=== PATIENT | male | born 1940 | race Caucasian/White ===

== ENCOUNTER 2019-07-25 05:53 | Emergency (ER) | payer OTHER, MEDICARE ==
[~2019-07-25] VITALS: Ht 188 cm; Wt 97.5 kg
[~2019-07-25 05:53] MED LIST: ASPI325 PO; ASPI81CH PO; ATEN50 PO; DESO.05TCA TOP; DIAZ5 PO; FISH1000 PO; FLUO25TC TOP; MULVITMINF PO; NAPR500 PO; Norco 5-325 Ta1 EACH PO; OMEP20ER PO; OXYACE5T PO; Robaxin500 MG PO; SIMV10 PO; TAMS.4ER PO
[2019-07-25] MEDS ORDERED: ELIQUIS2.5 MG PO (06:15)
[2019-07-25] MEDS ORDERED: FISH OIL 500 M1 EACH PO (06:16)
[2019-07-25] MEDS ORDERED: NITR.4SL SL (06:17)
[2019-07-25 06:18] LABS: BASOPHILS ABSOLUTE AUTO 0.06 K/mm3 (0.00-0.23); BASOPHILS PERCENT AUTO 1 % (0-2); EOSINOPHILS ABSOLUTE AUTO 0.32 K/mm3 (0.00-0.68); EOSINOPHILS PERCENT AUTO 5 % (0-6); Hematocrit 46.8 % (37.0-53.0); Hemoglobin 15.8 g/dL (13.5-17.5); IMMATURE GRAN ABSOLUTE AUTO 0.01 K/mm3 (0.00-0.10); IMMATURE GRAN PERCENT AUTO 0 % (0-1); LYMPHOCYTES ABSOLUTE AUTO 2.54 K/mm3 (0.84-5.20); LYMPHOCYTES PERCENT AUTO 40 % (21-46); MONOCYTES ABSOLUTE AUTO 0.81 K/mm3 (0.16-1.47); MONOCYTES PERCENT AUTO 13 % (4-13); Mean Corpuscular HGB 33.1 pg (26.0-34.0); Mean Corpuscular HGB Conc 33.8 g/dL (31.5-36.5); Mean Corpuscular Volume 98 fL (80-100); Mean Platelet Volume 9.7 fL (9.1-12.4); NEUTROPHILS ABSOLUTE AUTO 2.65 K/mm3 (1.96-9.15); NEUTROPHILS PERCENT AUTO 42 % (41-73); Platelet Count 190 K/mm3 (150-400); RDW Coefficient Variation 13.8 % (11.7-14.2); RDW Standard Deviation 50.5 fL (35.1-46.3); Red Blood Cell Count 4.78 M/mm3 (4.30-5.90); White Blood Cell Count 6.39 K/mm3 (4.00-11.30)
[2019-07-25 06:33] LABS: Alanine Aminotransfer (ALT/SGP 41 U/L (12-78); Albumin, Blood 3.1 g/dL (3.4-5.0); Anion Gap 7 mmol/L (6-16); Aspartate Aminotrans (AST/SGOT 39 U/L (12-37); Bilirubin, Total 0.7 mg/dL (0.1-1.0); Blood Urea Nitrogen 20 mg/dL (8-24); Bun/Creatinine Ratio 19.4 (12.0-20.0); CO2, Blood 24 mmol/L (21-32); Calcium, Blood 8.2 mg/dL (8.5-10.1); Chloride, Blood 111 mmol/L (98-108); Creatinine, Blood 1.03 mg/dL (0.60-1.20); Globulin, Blood 3.2 g/dL (2.2-4.0); Glomerular Filtration Rate >60 (60-); Glucose, Blood 143 mg/dL (70-99); Potassium, Blood 4.2 mmol/L (3.5-5.5); Sodium, Blood 142 mmol/L (136-145); Total Protein, Blood 6.3 g/dL (6.4-8.2)
[2019-07-25 06:36] LABS: Alk Phos 102 U/L (50-136); Troponin I <0.015 ng/mL (0.000-0.040)
== END 2019-07-25 08:00 | disposition home or self-care (01) ==
LOC: ER 05:53
PROVIDERS: Emergency Medicine
DX: R55 Syncope and collapse (principal); I48.91 Unspecified atrial fibrillation; I25.10 Atherosclerotic heart disease of native coronary artery without angina pectoris; I25.2 Old myocardial infarction; I10 Essential (primary) hypertension
CPT/HCPCS: 36415; 71046; 80053; 84484; 85025; 93005; 93010; 96360; 99284-25; J7030

== ENCOUNTER 2021-06-28 08:31 | Day surgery (SDC) | payer MEDICARE, OTHER ==
[~2021-06-28] VITALS: Ht 188 cm; Wt 109.0 kg
[~2021-06-28 08:31] MED LIST changes: +ATOR20 PO; +CENTRUM SILVER1 EAC2 PO; +ELIQUIS2.5 MG PO; -MULVITMINF PO; +NITR.4SL SL; +OMEGA-3 FISH O1 EA13 PO
[2021-06-28] MEDS ORDERED: ELIQUIS5 M2 (08:55)
== END 2021-06-28 10:59 | disposition home or self-care (01) ==
LOC: ORSCSDS 08:31
PROVIDERS: Internal Medicine Gastroenterology
PROC: 0DBK8ZX Excision of Ascending Colon, Via Natural or Artificial Opening Endoscopic, Diagnostic (ICD-10-PCS; principal; 2021-06-28 10:00)
PROC: 0DBH8ZX Excision of Cecum, Via Natural or Artificial Opening Endoscopic, Diagnostic (ICD-10-PCS; principal; 2021-06-28 10:00)
DX: Z12.11 Encounter for screening for malignant neoplasm of colon (principal); Z86.010 Personal history of colon polyps; Z80.0 Family history of malignant neoplasm of digestive organs; D12.2 Benign neoplasm of ascending colon; D12.0 Benign neoplasm of cecum; K57.30 Diverticulosis of large intestine without perforation or abscess without bleeding; I10 Essential (primary) hypertension; Z79.01 Long term (current) use of anticoagulants; Z79.899 Other long term (current) drug therapy
CPT/HCPCS: 88305; J2704; J7120

== ENCOUNTER → 2021-08-11 | Outpatient (CLI) | payer MEDICARE, OTHER ==
[~2021-08-11] MED LIST changes: +ELIQUIS5 M2
== END | disposition home or self-care (01) ==
LOC: LAB SHORT 12:00
DX: T81.89XA Other complications of procedures, not elsewhere classified, initial encounter (principal); A49.9 Bacterial infection, unspecified; L81.4 Other melanin hyperpigmentation; L82.1 Other seborrheic keratosis; D22.61 Melanocytic nevi of right upper limb, including shoulder; D22.5 Melanocytic nevi of trunk; D22.62 Melanocytic nevi of left upper limb, including shoulder; D22.39 Melanocytic nevi of other parts of face; L57.0 Actinic keratosis
CPT/HCPCS: 87070; 87077; 87186

== ENCOUNTER → 2021-12-20 | Outpatient (CLI) | payer MEDICARE, OTHER | END | disposition home or self-care (01) | LOC: LAB SHORT 14:30 | DX: S80.921A Unspecified superficial injury of right lower leg, initial encounter (principal); L08.9 Local infection of the skin and subcutaneous tissue, unspecified | CPT/HCPCS: 87070; 87205 ==

== ENCOUNTER 2023-08-02 11:40 | Inpatient (IN) | payer OTHER, MEDICARE ==
[2023-08-02] VITALS (11 sets, daily range): BP systolic 107–136; BP diastolic 75–94
[~2023-08-02] VITALS: Ht 188 cm; Wt 115.2 kg
[2023-08-02 12:39] LABS: BASOPHILS ABSOLUTE AUTO 0.04 K/mm3 (0.00-0.23); BASOPHILS PERCENT AUTO 1 % (0-2); EOSINOPHILS ABSOLUTE AUTO 0.23 K/mm3 (0.00-0.68); EOSINOPHILS PERCENT AUTO 4 % (0-6); Hemoglobin 16.5 g/dL (13.5-17.5); IMMATURE GRAN ABSOLUTE AUTO 0.01 K/mm3 (0.00-0.10); IMMATURE GRAN PERCENT AUTO 0 % (0-1); LYMPHOCYTES ABSOLUTE AUTO 1.31 K/mm3 (0.84-5.20); LYMPHOCYTES PERCENT AUTO 20 % (21-46); MONOCYTES ABSOLUTE AUTO 0.62 K/mm3 (0.16-1.47); MONOCYTES PERCENT AUTO 10 % (4-13); Mean Corpuscular HGB 33.3 pg (26.0-34.0); Mean Corpuscular HGB Conc 34.4 g/dL (31.5-36.5); Mean Corpuscular Volume 97 fL (80-100); Mean Platelet Volume 9.8 fL (9.1-12.4); NEUTROPHILS ABSOLUTE AUTO 4.27 K/mm3 (1.96-9.15); NEUTROPHILS PERCENT AUTO 66 % (41-73); Platelet Count 206 K/mm3 (150-400); RDW Coefficient Variation 13.8 % (11.7-14.2); RDW Standard Deviation 49.4 fL (35.1-46.3); Red Blood Cell Count 4.95 M/mm3 (4.30-5.90); White Blood Cell Count 6.48 K/mm3 (4.00-11.30)
[2023-08-02 13:11] LABS: Albumin, Blood 3.2 g/dL (3.4-5.0); Albumin/Globulin Ratio 0.9 (0.8-1.8); Bilirubin, Total 0.7 mg/dL (0.1-1.0); Bun/Creatinine Ratio 19.6 (12.0-20.0); Calcium, Blood 8.7 mg/dL (8.5-10.1); Creatinine, Blood 1.07 mg/dL (0.60-1.20); Globulin, Blood 3.4 g/dL (2.2-4.0); Potassium, Blood 4.6 mmol/L (3.5-5.5); Total Protein, Blood 6.6 g/dL (6.4-8.2)
[2023-08-02 15:22] LABS: Cholesterol 109 mg/dL (50-200); HDL Cholesterol 55 mg/dL (>39); LDL/HDL RATIO 0.6; Low Density Lipoprotein Chol 34 mg/dL (0-110); Triglycerides 101 mg/dL (30-160); Very Low Density Lipoprot Chol 20 mg/dL (6-32)
[2023-08-02 15:24] LABS: International Normalized Ratio 1.12; Prothrombin Time Results 11.7 Sec (9.7-11.5)
--- NOTE | 2023-08-02 17:10 | NUR ---
INITIAL ASSESSMENT PATIENT ARRIVED FROM QUALITY SYSTEMS SPECIALIST. PATIENT ALERT AND ORIENTED X 4, AFEBRILE. PATIENT DENIES PAIN INCLUDING CHEST PAIN OR PRESSURE. PATIENT AFEBRILE. PATIENT SATTING 90% AND GREATER ON RA. PATIENT IN A. FIB, HR IN THE 80S. SBP IN THE 120S. GI AND WNL. TR BAND AND ARMBOARD TO R RADIAL; NO BLEEDING, BRUISING OR HEMATOMA NOTED. TR BAND INFLATED WITH 10 MLS OF AIR AT 1640 PER QUALITY SYSTEMS SPECIALIST RN REPORT AND DOCUMENTATION. PATIENT ORIENTED TO UNIT, ROOM AND CALL LIGHT. BED LOW, CALL LIGHT IN REACH, BED ALARM ON. AND DAUGHTER AT BEDSIDE. CARE CONTINUES.
--- NOTE | 2023-08-02 18:50 | NUR ---
SHIFT SUMMARY PATIENT REMAINED ALERT AND ORIENTED, PLEASANT AND CALM THIS SHIFT SINCE ARRIVING FROM MICROFILM TECHNICIAN. PATIENT HAS REMAINED AFEBRILE. PATIENT HAS HAD NO COMPLAINTS OF PAIN, CP OR PRESSURE THIS SHIFT. PATIENT HAS REMAINED SATTING 90% AND GREATER ON RA. PATIENT HAS REMAINED IN A. FIB, HR 70S TO 80S. SBP LOW 100S TO 130S. GI AND WNL. TR BAND TO RIGHT RADIAL; NO BLEEDING, BRUISING, OR HEMATOMA NOTED WHEN ARRIVED. PATIENT DID GET UP 1 PERSON ASSIST TO USE URINAL AND SITE OOZED SLIGHTLY. 10 CC AIR IN CUFF AT 1640 PER RN REPORT AND DOCUMENTATION. BECAUSE OF OOZING HAVE NOT STARTED TO DECREASE AIR IN CUFF YET. SPOKE WITH BOTH DR. DUNCAN AND DR. GAUTHIER; HEPARIN ORDERS DC'D, ELIQUIS ORDERED TO START TOMORROW, PLAVIX TO START TOMORROW, ASPIRIN TO BE DC'D AFTER 30 DAYS. BED LOW, CALL LIGHT IN REACH. NO COMPLAINTS AT THIS TIME. REPORT HAS BEEN GIVEN TO ASSUMING TARGETEER NURSE.
--- NOTE | 2023-08-02 20:25 | NUR ---
TR BAND AIR REMOVAL 2ML AIR REMOVED FROM TR BAND AT 2024. NO FRESH BLOOD AT SITE, NO HEAMATOMA. SENSATION INTACT. ARM BOARD REMAINS IN PLACE.
--- NOTE | 2023-08-02 20:43 | NUR ---
ASSUMED CARE AT 1900 REPORT GIVEN BY DAY RN. PT AWAKE AND ALERT LYING IN BED WATCHING TV. NO VOICED CONCERS. IS COMFORTABLE. TR BAND IN PLACE AND CHECKED OVER WITH DAY RN. VSS. IN AFIB. CALL HONG IN REACH.
--- NOTE | 2023-08-02 20:46 | NUR ---
TR BAND AIR REMOVAL TR BAND IN PLACE W 10CC AIR TO RT RADIAL SITE. AT 1930 2ML AIR REMOVED. OLD BLOOD AROUND SITE. NO HEMATOMA PRESENT. SENSATION INTACT. ARM BOARD IN PLACE. PT REMINDED TO NOT USE HAND.
--- NOTE | 2023-08-02 20:52 | NUR ---
TR BAND AIR REMOVAL 2ML AIR REMOVED FROM TR BAND. NO NEW ACTIVE BLEEDING, NO HEMATOMA AT SITE.
--- NOTE | 2023-08-02 21:24 | NUR ---
TR BAND AIR REMOVAL 2ML AIR REMOVED FROM TR BAND. NO ACTIVE BLEEDING AT SITE, NO HEMATOMAS.
--- NOTE | 2023-08-02 22:05 | NUR ---
TR BAND AIR REMOVAL 2ML AIR REMOVED. NO ACTIVE BLEEDING AT SITE, NO HEMATOMA. ARM BOARD IN PLACE. CAP REFIIL AND SENSATION WINL.
--- NOTE | 2023-08-02 23:45 | NUR ---
TR BAND REMOVAL TR BAND REMOVED FROM RIGHT RADIAL. NO BLEEDING AT SITE, NO HEMATOMA. SITE SOFT, RADIAL PULSE STRONG. TEGARDERM PUT ON SITE. ARM BOARD PUT BACK ON TO REMIND PT NOT TO BEND WRIST AT SITE.
[2023-08-03] VITALS (9 sets, daily range): BP systolic 104–138; BP diastolic 68–106
--- NOTE | 2023-08-03 06:09 | NUR ---
DAUGHTER PHONED, UPDATE PROVIDED.
[2023-08-03 06:13] LABS: BASOPHILS ABSOLUTE AUTO 0.07 K/mm3 (0.00-0.23); BASOPHILS PERCENT AUTO 1 % (0-2); EOSINOPHILS ABSOLUTE AUTO 0.38 K/mm3 (0.00-0.68); EOSINOPHILS PERCENT AUTO 6 % (0-6); Hematocrit 47.2 % (37.0-53.0); Hemoglobin 16.2 g/dL (13.5-17.5); IMMATURE GRAN ABSOLUTE AUTO 0.02 K/mm3 (0.00-0.10); IMMATURE GRAN PERCENT AUTO 0 % (0-1); LYMPHOCYTES PERCENT AUTO 26 % (21-46); MONOCYTES ABSOLUTE AUTO 0.81 K/mm3 (0.16-1.47); MONOCYTES PERCENT AUTO 12 % (4-13); Mean Corpuscular HGB 33.5 pg (26.0-34.0); Mean Corpuscular HGB Conc 34.3 g/dL (31.5-36.5); Mean Corpuscular Volume 98 fL (80-100); Mean Platelet Volume 9.6 fL (9.1-12.4); NEUTROPHILS ABSOLUTE AUTO 3.84 K/mm3 (1.96-9.15); NEUTROPHILS PERCENT AUTO 56 % (41-73); Platelet Count 176 K/mm3 (150-400); RDW Coefficient Variation 13.8 % (11.7-14.2); RDW Standard Deviation 49.8 fL (35.1-46.3); Red Blood Cell Count 4.84 M/mm3 (4.30-5.90); White Blood Cell Count 6.92 K/mm3 (4.00-11.30)
--- NOTE | 2023-08-03 06:23 | NUR ---
SHIFT SUMMARY SLEPT OFF AND ON THROUGHOUT NIGHT. DENIED ANY PAIN. ALERT AND ORIENTED X4. REMAINED IN AFIB 60-90S. [id number]. TR BAND TO RT RADIAL SITE REMOVED AT 2315. REASSESSED THROUGHOUT NIGHT, NO HEMATOMA AT SITE OR BLEEDING. ARM BOARD KEPT IN PLACE OVERNIGHT. DAUGHTER PHONED THIS MORNING, UPDATE WAS PROVIDED. VOIDED USING URINALS, ADEQUATE OUTPUT. NO VOICED CONCERNS BY PT AT THIS TIME. REMAINS AWAKE LYING IN BED WATCHING TV. CALL HONG IN REACH.
[2023-08-03 06:32] LABS: Alanine Aminotransfer (ALT/SGP 25 U/L (12-78); Albumin/Globulin Ratio 0.9 (0.8-1.8); Alk Phos 121 U/L (50-136); Anion Gap 4 mmol/L (6-16); Aspartate Aminotrans (AST/SGOT 27 U/L (12-37); Bilirubin, Total 0.8 mg/dL (0.1-1.0); Blood Urea Nitrogen 21 mg/dL (8-24); CO2, Blood 27 mmol/L (21-32); Calcium, Blood 8.6 mg/dL (8.5-10.1); Chloride, Blood 111 mmol/L (98-108); Cholesterol 107 mg/dL (50-200); Globulin, Blood 3.4 g/dL (2.2-4.0); Glomerular Filtration Rate 74 (60-); Glucose, Blood 96 mg/dL (70-99); HDL Cholesterol 53 mg/dL (>39); LDL/HDL RATIO 0.6; Low Density Lipoprotein Chol 34 mg/dL (0-110); Potassium, Blood 4.2 mmol/L (3.5-5.5); Sodium, Blood 142 mmol/L (136-145); Total Protein, Blood 6.4 g/dL (6.4-8.2); Triglycerides 99 mg/dL (30-160); Very Low Density Lipoprot Chol 19 mg/dL (6-32)
--- NOTE | 2023-08-03 07:00 | NUR ---
ASSUMPTION OF CARE: ASSUMED CARE OF PATIENT. PATIENT RESTING QUIETLY IN BED. DENIES PAIN OR DISCOMFORT. DENIES SHORTNESS OF BREATH OR DIFFICULTY BREATHING. VITALS STABLE. MAPS >65. BP 122/91. SP02 98% ON ROOM AIR. TR BAND SITE COVERED WITH TEGADERM. NO HEMATOMA OR OOZING AT THE SITE. ASSESSED WITH REPRESENTATIVE PERSONAL SERVICE RN. CALL LIGHT WITHIN REACH.
[2023-08-03] MEDS ORDERED: ELIQUIS2.5 MG PO (10:12)
[2023-08-03] MEDS ORDERED: METO25ER PO (10:15)
[2023-08-03] MEDS ORDERED: ATOR80 PO (10:16)
[2023-08-03] MEDS ORDERED: ASPI81CH PO (10:23)
[2023-08-03] MEDS ORDERED: CLOP75 PO (10:24)
[2023-08-03] MEDS ORDERED: PANT40 PO (11:07)
[2023-08-03] MEDS ORDERED: NITR.4SL SL (11:07)
--- NOTE | 2023-08-03 11:50 | NUR ---
DISCHARGE SUMMARY: THROUGHOUT THE MORNING, PATIENT DENIED CHEST PAIN, DISCOMFORT, NUMBNESS/TINGLING AND/OR SHORTNESS OF BREATH. PATIENT RESTED IN BED COMFORTABLY. VITAL SIGNS STABLE. MAPS >65. SPO2 >96% ON ROOM AIR. PATIENT TOLERATED PO INTAKE WITHOUT NAUSEA OR DISCOMFORT. RADIAL ACCESS SITE REMAINED UNCHANGED - NO OOZING, BLEEDING, SWELLING, HEMATOMA FORMATION, OR BRUISING. PATIENT COMPLIANT WITH ACTIVITY RESTRICTIONS OF RIGHT ARM AND WRIST. PATIENT ABLE TO TEACH BACK ON NEW MEDICATIONS AND DURATION OF TAKING PLAVIX AND ASPIRIN. NOTIFIED CARDIOLOGY CLINIC ABOUT NEED FOR FOLLOW-UP APPOINTMENT. DISCUSSED DISCHARGE MEDICATIONS WITH DR. LUNA, ESPECIALLY IN REGARDS TO PATIENT REQUEST FOR PRN NITRO AND DR. DUNCAN'S NOTE RECOMMENDING DAILY PROTONIX. FA[facility]ED MEDICATION LIST TO [facility] PER PATIENT REQUEST. DISCHARGE INSTRUCTIONS PROVIDED TO PATIENT AND PATIENT'S . ALL DISCHARGE QUESTIONS AND CONCERNS ADDRESSED. PATIENT DISCHARGED IN WHEEL CHAIR WITH PATIENT GOLF CLUB MANAGER. PATIENT STABLE AT TIME OF DISCHARGE.
[2023-08-04 13:09] LABS: HEMOGLOBIN A1C 5.9 % (4.8-5.6)
== END 2023-08-03 11:45 | disposition home or self-care (01) | DRG 322 ==
LOC: ER 11:40 → ICUE 14:31 → ERHOLD 14:31 → ICUE 15:49
PROVIDERS: Physician Assistant; ADMIT Internal Medicine
PROC: 027034Z Dilation of Coronary Artery, One Artery with Drug-eluting Intraluminal Device, Percutaneous Approach (ICD-10-PCS; principal; 2023-08-02)
PROC: B241ZZ3 Ultrasonography of Multiple Coronary Arteries, Intravascular (ICD-10-PCS; 2023-08-02)
PROC: B2111ZZ Fluoroscopy of Multiple Coronary Arteries using Low Osmolar Contrast (ICD-10-PCS; 2023-08-02)
PROC: 4A023N7 Measurement of Cardiac Sampling and Pressure, Left Heart, Percutaneous Approach (ICD-10-PCS; 2023-08-02)
DX: I21.4 Non-ST elevation (NSTEMI) myocardial infarction (principal); I50.22 Chronic systolic (congestive) heart failure; I25.10 Atherosclerotic heart disease of native coronary artery without angina pectoris; I11.0 Hypertensive heart disease with heart failure; I77.819 Aortic ectasia, unspecified site; I34.0 Nonrheumatic mitral (valve) insufficiency; I48.91 Unspecified atrial fibrillation; E78.5 Hyperlipidemia, unspecified; K21.9 Gastro-esophageal reflux disease without esophagitis; N40.0 Benign prostatic hyperplasia without lower urinary tract symptoms; R73.03 Prediabetes; M19.90 Unspecified osteoarthritis, unspecified site; M48.061 Spinal stenosis, lumbar region without neurogenic claudication; Z88.8 Allergy status to other drugs, medicaments and biological substances; Z79.01 Long term (current) use of anticoagulants; I25.2 Old myocardial infarction; Z95.5 Presence of coronary angioplasty implant and graft; Z98.890 Other specified postprocedural states; Z79.899 Other long term (current) drug therapy
CPT/HCPCS: 36415; 71046; 76937; 80053; 80061; 83036; 83880; 84484; 85025; 85347; 85610; 85730; 92978; 93005; 93010; 93306; 93454; 99285-25; A9270; C1725; C1753; C1769; C1874; C1887; C1894; C9600; J1644; J2250; J2371; J3010; J7030; J7050; Q9967

== ENCOUNTER 2024-04-25 09:45 | Day surgery (SDC) | payer OTHER ==
[~2024-04-25] VITALS: Ht 188 cm; Wt 115.9 kg
[~2024-04-25 09:45] MED LIST changes: +ATOR80 PO; +Balanced Salt Epinephrine Irrigation Solution 500 mL IR SCH; +CLOP75 PO; +Lidocaine HCl/Pf 1% 5 ML VIAL XX SCH; +METO25ER PO; +Moxifloxacin HCL 0.5 MG/0.1 ML 0.4MLSYR RIGHTEYE SCH; +NS 500 ML IV ONE; +PANT40 PO; +PHENYLEPHRINE\\TROPICAMIDE\\TETRACAINE OPHTHALMIC DILATING SOLN RIGHTEYE PRN; +Povidone-Iodine 450 DROP/30 ML Solution ONE; +Povidone-Iodine 450 DROP/30 ML Solution RIGHTEYE SCH; +Tetracaine HCl/Pf 0.5% Opth Soln 4 ml ONE; +Triamcinolone Inj Susp 40 MG / ML 1ML Vial INJ SCH; +Triamcinolone Inj Susp 40 MG / ML 1ML Vial ONE
[2024-04-25] MEDS ORDERED: NS 500 ML IV ONE (10:54)
[2024-04-25] MEDS ORDERED: Midazolam HCl 1MG / ML 2ML Vial ONE (11:08)
[2024-04-25 11:41] VITALS: BP 136/101
== END 2024-04-25 11:52 | disposition home or self-care (01) ==
LOC: ORSCSDS 09:45
PROVIDERS: Ophthalmology
PROC: 08RJ3JZ Replacement of Right Lens with Synthetic Substitute, Percutaneous Approach (ICD-10-PCS; principal; 2024-04-25 11:00)
DX: H25.811 Combined forms of age-related cataract, right eye (principal); H52.201 Unspecified astigmatism, right eye; Z96.1 Presence of intraocular lens; I10 Essential (primary) hypertension; I48.91 Unspecified atrial fibrillation; Z79.01 Long term (current) use of anticoagulants; I25.10 Atherosclerotic heart disease of native coronary artery without angina pectoris; E78.5 Hyperlipidemia, unspecified; I25.2 Old myocardial infarction; N40.0 Benign prostatic hyperplasia without lower urinary tract symptoms; Z79.899 Other long term (current) drug therapy; E66.9 Obesity, unspecified; Z68.32 Body mass index [BMI] 32.0-32.9, adult; Z79.02 Long term (current) use of antithrombotics/antiplatelets
CPT/HCPCS: J2250; J3301; J7040; V2632

== ENCOUNTER 2025-07-28 05:35 | Emergency (ER) | payer MEDICARE, OTHER ==
[~2025-07-28] VITALS: Ht 188 cm; Wt 113.4 kg
[~2025-07-28 05:35] MED LIST changes: -Balanced Salt Epinephrine Irrigation Solution 500 mL IR SCH; -Lidocaine HCl/Pf 1% 5 ML VIAL XX SCH; -Moxifloxacin HCL 0.5 MG/0.1 ML 0.4MLSYR RIGHTEYE SCH; -NS 500 ML IV ONE; -PHENYLEPHRINE\\TROPICAMIDE\\TETRACAINE OPHTHALMIC DILATING SOLN RIGHTEYE PRN; -Povidone-Iodine 450 DROP/30 ML Solution ONE; -Povidone-Iodine 450 DROP/30 ML Solution RIGHTEYE SCH; -Tetracaine HCl/Pf 0.5% Opth Soln 4 ml ONE; -Triamcinolone Inj Susp 40 MG / ML 1ML Vial INJ SCH; -Triamcinolone Inj Susp 40 MG / ML 1ML Vial ONE
[2025-07-28] MEDS ORDERED: Oxymetazoline 0.05% Nasal Relief Spray 15mL BTL ONE (05:50)
[2025-07-28 07:19] LABS: BASOPHILS ABSOLUTE AUTO 0.06 K/mm3 (0.00-0.23); BASOPHILS PERCENT AUTO 1 % (0-2); EOSINOPHILS ABSOLUTE AUTO 0.25 K/mm3 (0.00-0.68); EOSINOPHILS PERCENT AUTO 4 % (0-6); Hematocrit 46.9 % (37.0-53.0); Hemoglobin 15.8 g/dL (13.5-17.5); IMMATURE GRAN ABSOLUTE AUTO 0.02 K/mm3 (0.00-0.10); IMMATURE GRAN PERCENT AUTO 0 % (0-1); LYMPHOCYTES ABSOLUTE AUTO 1.73 K/mm3 (0.84-5.20); LYMPHOCYTES PERCENT AUTO 27 % (21-46); MONOCYTES ABSOLUTE AUTO 0.76 K/mm3 (0.16-1.47); MONOCYTES PERCENT AUTO 12 % (4-13); Mean Corpuscular HGB Conc 33.7 g/dL (31.5-36.5); Mean Corpuscular Volume 99 fL (80-100); NEUTROPHILS ABSOLUTE AUTO 3.62 K/mm3 (1.96-9.15); NEUTROPHILS PERCENT AUTO 56 % (41-73); NRBC ABSOLUTE 0.00 K/mm3 (0.00-0.02); NRBC Auto 0.0 /100 WBC (0.0-0.2); Platelet Count 195 K/mm3 (150-400); RDW Coefficient Variation 13.8 % (11.7-14.2); RDW Standard Deviation 50.7 fL (35.1-46.3)
[2025-07-28 12:39] VITALS: BP 125/89
== END 2025-07-28 12:53 | disposition home or self-care (01) ==
LOC: ER 05:35
PROVIDERS: Emergency Medicine
DX: R04.0 Epistaxis (principal); E78.5 Hyperlipidemia, unspecified; I10 Essential (primary) hypertension; K21.9 Gastro-esophageal reflux disease without esophagitis; M19.90 Unspecified osteoarthritis, unspecified site; I48.91 Unspecified atrial fibrillation; Z79.01 Long term (current) use of anticoagulants; Z79.899 Other long term (current) drug therapy
CPT/HCPCS: 30903; 85025; 99283-25; A9270

== ENCOUNTER 2025-07-30 10:55 | Emergency (ER) | payer MEDICARE, OTHER ==
[~2025-07-30] VITALS: Ht 188 cm; Wt 113.4 kg
[2025-07-30 11:03] VITALS: BP 139/97
== END 2025-07-30 12:15 | disposition home or self-care (01) ==
LOC: ER 10:55
DX: Z48.00 Encounter for change or removal of nonsurgical wound dressing (principal); E78.5 Hyperlipidemia, unspecified; I10 Essential (primary) hypertension; K21.9 Gastro-esophageal reflux disease without esophagitis; M19.90 Unspecified osteoarthritis, unspecified site; Z79.02 Long term (current) use of antithrombotics/antiplatelets; Z79.899 Other long term (current) drug therapy; Z88.1 Allergy status to other antibiotic agents
CPT/HCPCS: 99282